=== PATIENT | female | born 2000 | race Caucasian/White ===

== ENCOUNTER 2023-07-05 22:46 | Emergency (ER) | payer OTHER, SELFPAY ==
[2023-07-05 22:49] VITALS: BP 140/79
[2023-07-05 23:05] LABS: % Basophils 0.4 % (0-2); % Eosinophils 0.7 % (0-6); % Immature Granulocytes 0.4 % (0-0.5); % Lymphocytes 19.9 % (20.5-51.1); % Monocytes 5.5 % (1.7-9.3); % Neutrophils 73.1 % (42.2-75.2); Absolute Basophils 0.1 10^3/uL (0-0.2); Absolute Eosinophils 0.1 10^3/uL (0-0.7); Absolute Immature Granulocytes 0.1 10^3/uL (0-0.05); Absolute Lymphocytes 2.7 10^3/uL (1.2-3.4); Absolute Monocytes 0.7 10^3/uL (0.1-0.6); Absolute Neutrophils 9.9 10^3/uL (1.4-6.5); Hematocrit 35.7 % (37.0-47.0); Hemoglobin 12.9 g/dL (12.0-16.0); Mean Corp Hgb Conc. 36.1 g/dL (33.0-37.0); Mean Corpuscular Volume 88.6 fL (81.0-99.0); Mean Platelet Volume 8.9 fL (7.4-10.4); Nucleated Red Blood Cells % 0 %; Platelet Count 293 10^3/uL (130-400); Red Blood Cell Count 4.03 10^6/uL (4.20-5.40); Red Cell Dist. Width 11.9 % (11.5-14.5); White Blood Cell Count 13.5 10^3/uL (4.8-10.8)
[2023-07-05 23:35] LABS: ALT (SGPT) 14 U/L (0-35); AST (SGOT) 21 U/L (14-36); Albumin 4.6 g/dl (3.5-5.0); Alkaline Phosphatase 54 U/L (38-126); Blood Urea Nitrogen 8 mg/dl (7-17); Carbon Dioxide 19 mmol/L (22-30); Chloride 104 mmol/L (98-107); Glucose 91 mg/dl (70-99); Lipase 36 U/L (23-300); Potassium 3.6 mmol/L (3.5-5.1); Sodium 134 mmol/L (135-145); Total Bilirubin 0.9 mg/dl (0.2-1.3); Total Protein 7.7 g/dl (6.3-8.2); eGFR > 60.00
--- NOTE | 2023-07-06 02:10 | ED.GENMED ---
History of Present Illness
<JAYSHREE Winslow - Last Filed: 07/06/23 02:56>
General
Chief Complaint: Abdominal Symptoms
Source: patient and family
Exam Limitations: none
Time Seen by Provider: 07/06/23 02:00
Travel History
Have you had any contact with someone who has COVID-19?: No
Do you have any symptoms of coronavirus? Fever > 100 degrees, chills, cough, shortness of breath, sore throat, loss of taste or smell, muscle aches, or headache?: No
History of Present Illness
History of Present Illness:
22 year old female at 8 weeks gestation with no significant past medical hx who presents with diffuse abdominal pain with associated nausea, vomiting, diarrhea that began 1 day ago. Pt states she has been having normal morning sickness due to
her . She would get nausea in the morning which would resolve by the afternoon. However, yesterday she had diffuse abdominal pain with persistent nausea with multiple episodes of vomiting and diarrhea. States she has stabbing epigastric
pain and lower abdominal pain that feels like 'someone punching' her. She reports chills but no fevers. She is unable to keep liquids or solids down. Reports her usual vaginal discharge. She has not taken anything for her symptoms. No chest pain,
SOB, cough, flank pain, dysuria, hematuria, vaginal bleeding. Admits to smoking vape and marijuana, states she wants to quit due to the . No alcohol use or other illicit drug use. No recent travel. No sick contacts. No hx of abdominal
surgeries.
Pt saw her OBGYN last week and states everything was normal.
Past History
<JAYSHREE Winslow - Last Filed: 07/06/23 02:56>
Past History
ED Past Medical History: None
ED Past Surgical History: None
Social History
Tobacco: Vaping
Alcohol: None
Drug: Marijuana
Living: with family
Review of Systems
<Nicole Stevens [facility] - Last Filed: 07/06/23 02:56>
Review of Systems
All Other Systems: ROS reviewed and negative except as documented in HPI and ROS
Constitutional: Reports chills
EENT: Reports no symptoms
Respiratory: Reports no symptoms
Cardiac: Reports no symptoms
ABD/GI: Reports abdominal pain, nausea, vomiting and diarrhea
: Reports no symptoms
Musculoskeletal: Reports no symptoms
Skin: Reports no symptoms
Neurological: Reports no symptoms
Phy Exam
<Nicole Stevens [facility] - Last Filed: 07/06/23 02:56>
General Physical Exam
General Presentation: well appearing and mild distress
General age: appears stated age
General Skin: warm and dry
General Habitus: normal
General Mental: alert
General Hydration: appears well hydrated
Cardiovascular Exam
Cardiovascular Exam: regular rate/rhythm, no edema, no gallop and no murmur
Pulmonary Exam
Pulmonary Exam: lungs clear, no respiratory distress, no rales, no crackles, no rhonchi, no wheezing and no cough
Gastrointestinal Exam
Gastrointestinal Exam: normal bowel sounds, soft, no pulsatile mass and non distended
Palpation: left upper quadrant: Moderate tenderness, left lower quadrant: Moderate tenderness, right upper quadrant: Moderate tenderness and right lower quadrant: Moderate tenderness
Skin Exam
Skin Exam: normal color and warm/dry
Psychiatric Exam
Psychiatric Exam: normal mood/affect
Course
<Nicole Stevens [facility] - Last Filed: 07/06/23 02:56>
Orders/Labs/Results
Orders:
Orders
07/05/23 22:56
CBC/With Diff [Complete Blood Count/With Diff] Urgent
CMP [Comprehensive Metabolic Panel] Urgent
Lipase Urgent
07/06/23 02:24
1st Trimester US [US 1st Trimester] Urgent
Comment:
Reason For Exam: 8 weeks preg, abd pain, nausea
07/06/23 04:37
Metoclopramide [Reglan] 10 mg .ROUTE .STK-MED ONE
Metoclopramide [Reglan] 10 mg IV NOW STA
07/06/23 04:39
0.9% Sodium Chloride 500 ml [Nss] 1,000 ml IV ONCE
Abnormal Lab Results
07/05/23
22:56
WBC 13.5 H 10^3/uL
(4.8-10.8)
RBC 4.03 L 10^6/uL
(4.20-5.40)
Hct 35.7 L %
(37.0-47.0)
MCH 32.0 H pg
(27.0-31.0)
Abs Immat Gran (auto) 0.1 H 10^3/uL
(0-0.05)
Absolute Neuts (auto) 9.9 H 10^3/uL
(1.4-6.5)
Absolute Monos (auto) 0.7 H 10^3/uL
(0.1-0.6)
Lymphocytes % 19.9 L %
(20.5-51.1)
Sodium 134 L mmol/L
(135-145)
Carbon Dioxide 19 L mmol/L
(22-30)
07/05/23 22:56
07/05/23 22:56
Vital Signs
Initial and Last Documented VS:
Initial Vital Signs
Temp Pulse Resp BP Pulse Ox
98.2 F 85 16 140/79 99
07/05/23 22:49 07/05/23 22:49 07/05/23 22:49 07/05/23 22:49 07/05/23 22:49
Last Documented Vital Signs
Temp Pulse Resp BP Pulse Ox
98.2 F 85 16 140/79 99
07/05/23 22:49 07/05/23 22:49 07/05/23 22:49 07/05/23 22:49 07/05/23 22:49
<Josh Mullins, DO - Last Filed: 07/06/23 06:06>
Orders/Labs/Results
Orders:
Orders
07/05/23 22:56
CBC/With Diff [Complete Blood Count/With Diff] Urgent
CMP [Comprehensive Metabolic Panel] Urgent
Lipase Urgent
07/06/23 02:24
1st Trimester US [US 1st Trimester] Urgent
Comment:
Reason For Exam: 8 weeks preg, abd pain, nausea
07/06/23 04:37
Metoclopramide [Reglan] 10 mg .ROUTE .STK-MED ONE
Metoclopramide [Reglan] 10 mg IV NOW STA
07/06/23 04:39
0.9% Sodium Chloride 500 ml [Nss] 1,000 ml IV ONCE
Abnormal Lab Results
07/05/23
22:56
WBC 13.5 H 10^3/uL
(4.8-10.8)
RBC 4.03 L 10^6/uL
(4.20-5.40)
Hct 35.7 L %
(37.0-47.0)
MCH 32.0 H pg
(27.0-31.0)
Abs Immat Gran (auto) 0.1 H 10^3/uL
(0-0.05)
Absolute Neuts (auto) 9.9 H 10^3/uL
(1.4-6.5)
Absolute Monos (auto) 0.7 H 10^3/uL
(0.1-0.6)
Lymphocytes % 19.9 L %
(20.5-51.1)
Sodium 134 L mmol/L
(135-145)
Carbon Dioxide 19 L mmol/L
(22-30)
07/05/23 22:56
07/05/23 22:56
Vital Signs
Initial and Last Documented VS:
Initial Vital Signs
Temp Pulse Resp BP Pulse Ox
98.2 F 85 16 140/79 99
07/05/23 22:49 07/05/23 22:49 07/05/23 22:49 07/05/23 22:49 07/05/23 22:49
Last Documented Vital Signs
Temp Pulse Resp BP Pulse Ox
98.2 F 85 16 140/79 99
07/05/23 22:49 07/05/23 22:49 07/05/23 22:49 07/05/23 22:49 07/05/23 22:49
<JAYSHREE Winslow - Last Filed: 07/06/23 02:56>
MDM/Problems Addressed
Differential Diagnosis Includes:
Appendicitis, cholecystitis, bowel obstruction, ovarian cyst, fibroids
MDM/Problems Addressed:
22 year old female at 8 weeks gestation with abdominal pain and associated nausea, vomiting, and diarrhea x 1 day.
<JAYSHREE Winslow - Last Filed: 07/06/23 02:56>
*Critical Care Note
Total Time (30-74mins, 75-104mins- exclusive of procedures): Not Applicable
<Josh Mullins DO - Last Filed: 07/06/23 06:06>
Update Note
Update Note:
US pelvis OB
Comparison: None available.
IMPRESSION:
-Single intrauterine gestation containing an embryo with cardiac motion (152-3 bpm). By crown-rump length of 10.9 mm, calculated sonographic age of 7 weeks and 2 days (US [facility]NER 02/20/2024).
-No evidence of discrete keesha-gestational hemorrhage. The cervix is closed.
-Normal 2.7 cm left ovary. No stromal edema. Normal vascularity on Doppler ultrasound. No paraovarian mass.
-The right ovary measures 3.7 cm, enlarged by a 2.6 cm anechoic and unilocular cyst. No stromal edema. Normal vascularity on Doppler ultrasound. No paraovarian mass.
-No significant free fluid in the pelvic cul-de-sac.
ED Attending Note
<JAYSHREE Winslow - Last Filed: 07/06/23 02:56>
-
Portions of this chart may have been created with voice recognition software.� Occasional wrong word or��sound alike� substitutions may have occurred due to the inherent limitations of voice recognition software.
<Josh Mullins DO - Last Filed: 07/06/23 06:06>
ED Attending Note
Patient seen and examined by attending physician: Yes
I performed the substantive portion of visit, reviewed & personally made and approve the management plan that is documented in note by myself or MARIAELENA.: Yes
ED Attending Note:
Pleasant 22-year-old female presents with diffuse abdominal pain with nausea vomiting and diarrhea that began 1 day ago. She is almost 8 weeks . And she states that she has been taking Zofran for morning sickness. She states that
typically during the morning she would be nauseated but it mostly resolved on its own. She states that extreme cases required her to take Zofran which did help. Patient states that she does vape and smoke marijuana. Though she is currently doing
these, she does want to quit. Patient denies chest pain or shortness of breath. Patient was seen in conjunction with the PA student. I have reviewed and agree with the history and treatment plan presented. On my independent physical exam,
patient is awake, alert, and oriented x3 heart is regular rate rhythm. Lungs are clear to auscultation bilaterally no wheezes rales or rhonchi present. Abdomen is soft and nontender abdomen is not gravid appearing though I would expect that being
only 7 weeks . Moves all 4 extremities.
Plan is IV fluids and nausea medicine.
07/06/2023 0604 AM: Patient has been resting comfortably after administration of fluids and Reglan. She wishes to be discharged home. She has no further complaints at this time. She will follow-up with OB. We did discuss return to ER instructions
with patient and mother. There were no further questions at this time.
Discharge Plan
Departure
Patient Disposition: Home (Routine Discharge)
Date of Disposition: 07/06/23
Time of Disposition: 06:05
Patient with high blood pressure during this ER visit?: Yes
Discharge Problem:
, Abdominal pain, Nausea & vomiting, Diarrhea
Prescriptions:
No Action
No Current Medications
0
Referrals:
NONE,* [Family Provider] -
Interventions
Interventions:
*Risk Screen - Suicide Last Done: 07/05/23 22:49
*General Assessment Last Done: 07/05/23 22:49
*Neglect/Abuse Screening Last Done: 07/05/23 22:49
XM-Rfmrmz-Oxusrjvimn Assessment Last Done: 07/06/23 03:12
Discharge Date and Time
Print Language: OCCITAN
[2023-07-06] MEDS: REGLAN 10 MG IV (04:38)
[2023-07-06] MEDS: NSS 1000 IV (04:40)
[2023-07-06 04:43] VITALS: BMI 25.6
[2023-07-06 05:00] VITALS: BP 128/72
== END 2023-07-06 06:23 | disposition home or self-care (01) ==
LOC: EMR 22:46
PROVIDERS: Emergency Medicine; EMERGENCY PHYSICIAN Student in an Organized Health Care Education/Training Program
DX: O99.891 Other specified diseases and conditions complicating pregnancy (principal); R10.9 Unspecified abdominal pain; O21.9 Vomiting of pregnancy, unspecified; R19.7 Diarrhea, unspecified; O99.331 Smoking (tobacco) complicating pregnancy, first trimester; F17.290 Nicotine dependence, other tobacco product, uncomplicated; Z3A.08 8 weeks gestation of pregnancy
CPT/HCPCS: 99284; 96374; 96361; 76801; 80053; 83690; 85025